=== PATIENT | female | born 1990 | race Caucasian/White ===

== ENCOUNTER 2019-03-02 19:07 | Emergency (ER) | payer MEDICAID ==
[~2019-03-02] VITALS: Ht 157.5 cm; Wt 58.2 kg
[~2019-03-02 19:07] MED LIST: IBUP-1542 PO; PREN-46 PO; PREN1TAB17 PO
[2019-03-02 19:16] VITALS: BP 120/73; PULSE 71; RESP 18; Ht 157.5 cm; Wt 58.2 kg
== END 2019-03-02 19:52 | disposition home or self-care (01) ==
LOC: E/R 19:07
DX: M54.2 Cervicalgia (principal); V49.40XA Driver injured in collision with unspecified motor vehicles in traffic accident, initial encounter
CPT/HCPCS: 99282